=== PATIENT | female | born 1950 | race Caucasian/White ===

== ENCOUNTER 2020-10-19 16:16 | Inpatient (IN) | payer MEDICAID ==
[~2020-10-19] VITALS: Ht 162.6 cm; Wt 73.5 kg
[2020-10-19] MEDS ORDERED: METHYLPREDNISOLONE SOD SUCC 125 MG/2 ML VIAL IV STA (16:47)
[2020-10-19] MEDS ORDERED: CEFTRIAXONE 1 G PREMIX 50 ML IV ONE (17:00)
[2020-10-19] MEDS ORDERED: AZITHROMYCIN 500 MG in DEXT 5% WATER 250 ML IV SCH (17:00)
[2020-10-19 17:06] LABS: BG BASE EXCESS 0.3 mmol/L (-2.0-2.0); BG CARBOXYHEMOGLOBIN 0.4 % (0.5-1.5); BG METHEMOGLOBIN 0.1 % (0.0-1.5); BG OXYGEN SATURATION 89.9 % (92.0-98.5); BG OXYHEMOGLOBIN 89.5 % (94.0-97.0); BG PCO2 35.7 mmHg (35.0-45.0); BG PH 7.446 (7.350-7.450); BG SAMPLE SITE LEFT RADIAL; BG TOTAL HEMOGLOBIN 12.7 g/dL (12.0-18.0); BG VENT MODE MASK - NRB
[2020-10-19 18:06] LABS: BASOPHILS % 0.5 % (0.0-2.0); HEMATOCRIT. 34.7 % (36.0-48.0); HEMOGLOBIN. 11.9 g/dL (12.0-16.0); LYMPHOCYTES % 8.3 % (20.0-50.0); MEAN CORPUSCULAR HEMOGLOBIN 30.4 pg (28.0-32.0); MEAN CORPUSCULAR VOLUME 88.8 fL (81.0-99.0); MEAN PLATELET VOLUME 8.3 fl (7.4-10.4); MONOCYTES % 4.8 % (2.0-8.0); NEUTROPHILS % 86.4 % (40.0-76.0); PLATELET 259 x1000/uL (130-400); RED BLOOD CELL COUNT 3.91 mill/uL (4.2-5.4); RED CELL DISTRIBUTION WIDTH 14.3 % (11.6-14.6)
[2020-10-19 18:12] LABS: CHLORIDE 99 mEq/L (98-107)
[2020-10-19] MEDS ORDERED: ACETAMINOPHEN 325MG TABLET PO ONE (21:30)
[2020-10-19] MEDS ORDERED: ONDANSETRON HCL 4MG/2ML INJ IV PRN (22:00)
[2020-10-19] MEDS ORDERED: BENZONATATE 100MG CAPSULE PO PRN (22:00)
[2020-10-19] MEDS ORDERED: ACETAMINOPHEN 325MG TABLET PO PRN (22:00)
[2020-10-19] MEDS ORDERED: DEXTROSE 50% WATER 50ML SYRINGE IV PRN (22:15)
[2020-10-19] MEDS ORDERED: CEFTRIAXONE 1 G PREMIX 50 ML IV SCH (22:15)
[2020-10-20] MEDS: ALBUTEROL 6.7GM HFA INHALER ORI SCH ×6 (04:00→20:00)
[2020-10-20] MEDS: BLOOD SUGAR DIAGNOSTIC STRIP TEST SCH ×5 (06:10→20:24)
[2020-10-20] MEDS: INSULIN LISPRO 100 UNITS/ML SUBCUT SCH ×5 (06:14→20:29)
[2020-10-20] MEDS: DEXAMETHASONE 10 MG/ML VIAL IV SCH (08:55)
[2020-10-20] MEDS: ENOXAPARIN 40MG/0.4ML SYR SUBCUT SCH ×2 (08:56→20:29)
[2020-10-20 11:23] LABS: BG BASE EXCESS -3.9 mmol/L (-2.0-2.0); BG CARBOXYHEMOGLOBIN 0.4 % (0.5-1.5); BG DEOXYHEMOGLOBIN 8.3 % (0.0-5.0); BG FRACTION INSPIRED OXYGEN 100; BG HCO3 ACT 20.5 mmol/L (22.0-26.0); BG METHEMOGLOBIN 0.3 % (0.0-1.5); BG OXYGEN SATURATION 91.6 % (92.0-98.5); BG PCO2 34.9 mmHg (35.0-45.0); BG PH 7.386 (7.350-7.450); BG SAMPLE SITE LEFT RADIAL; BG TOTAL HEMOGLOBIN 12.5 g/dL (12.0-18.0); BG VENT MODE MASK - BIPAP
[2020-10-20] MEDS ORDERED: NOREPINEPHRINE 32 MG in DEXT 5% WATER 218 ML IV PRN (11:45)
[2020-10-20] MEDS ORDERED: LIDOCAINE HCL 1% 20ML VIAL (Pyxis) INJ ONE (13:27)
[2020-10-20] MEDS: CEFTRIAXONE 1,000 MG in DEXTROSE 5% WATER 50 ML IV SCH (14:34)
[2020-10-20 14:55] LABS: METHADONE URINE SCREEN NEGATIVE (NEGATIVE)
[2020-10-20 14:57] LABS: *AMPHETAMINES SCREEN URINE NEGATIVE (NEGATIVE); *BARBITURATES SCREEN URINE NEGATIVE (NEGATIVE); *BENZODIAZEPINES SCREEN URINE NEGATIVE (NEGATIVE); *COCAINE SCREEN URINE NEGATIVE (NEGATIVE); CANNABINOID URINE SCREEN NEGATIVE (NEGATIVE); OPIATES URINE SCREEN NEGATIVE (NEGATIVE); PHENCYCLIDINE URINE SCREEN NEGATIVE (NEGATIVE)
[2020-10-20] MEDS ORDERED: INSULIN GLARGINE UD 100 UNITS/ML SYR SUBCUT NR (15:30)
[2020-10-20] MEDS: INSULIN GLARGINE UD 100 UNITS/ML SYR SUBCUT SCH (22:00)
[2020-10-21] MEDS: ALBUTEROL 6.7GM HFA INHALER ORI SCH ×6 (00:15→19:50)
[2020-10-21 06:00] LABS: D-DIMER 2.74 mg/L FEU (<0.50); PROTHROMBIN TIME 10.4 sec (9.6-11.0)
[2020-10-21 06:02] LABS: BASOPHILS % 0.8 % (0.0-2.0); EOSINOPHILS % 0.1 % (0.0-5.0); HEMATOCRIT. 32.2 % (36.0-48.0); HEMOGLOBIN. 10.9 g/dL (12.0-16.0); LYMPHOCYTES % 7.7 % (20.0-50.0); MEAN CORPUSCULAR VOLUME 88.6 fL (81.0-99.0); MEAN PLATELET VOLUME 7.9 fl (7.4-10.4); NEUTROPHILS % 87.4 % (40.0-76.0); PLATELET 296 x1000/uL (130-400); RED BLOOD CELL COUNT 3.63 mill/uL (4.2-5.4); RED CELL DISTRIBUTION WIDTH 14.3 % (11.6-14.6)
[2020-10-21] MEDS: INSULIN LISPRO 100 UNITS/ML SUBCUT SCH ×4 (08:00→20:47)
[2020-10-21] MEDS: DEXAMETHASONE 10 MG/ML VIAL IV SCH (08:55)
[2020-10-21] MEDS: BLOOD SUGAR DIAGNOSTIC STRIP TEST SCH ×4 (08:55→20:47)
[2020-10-21 09:24] LABS: BG BASE EXCESS 4.1 mmol/L (-2.0-2.0); BG CARBOXYHEMOGLOBIN 0.3 % (0.5-1.5); BG DEOXYHEMOGLOBIN 3.2 % (0.0-5.0); BG FRACTION INSPIRED OXYGEN 100; BG HCO3 ACT 29.2 mmol/L (22.0-26.0); BG METHEMOGLOBIN 0.1 % (0.0-1.5); BG OXYGEN SATURATION 96.8 % (92.0-98.5); BG OXYHEMOGLOBIN 96.4 % (94.0-97.0); BG PCO2 46.3 mmHg (35.0-45.0); BG PH 7.418 (7.350-7.450); BG PO2 93.9 mmHg (75.0-100.0); BG SAMPLE SITE RIGHT BRACHIAL; BG TOTAL HEMOGLOBIN 11.2 g/dL (12.0-18.0); BG TOTAL RESPIRATORY RATE 26 b/min; BG VENT MODE MASK - BIPAP
[2020-10-21] MEDS: INSULIN GLARGINE UD 100 UNITS/ML SYR SUBCUT SCH ×2 (09:38→21:57)
[2020-10-21] MEDS: CEFTRIAXONE 1,000 MG in DEXTROSE 5% WATER 50 ML IV SCH (13:00)
[2020-10-21 15:23] LABS: T4 FREE 1.96 ng/dL (0.76-1.46)
[2020-10-21 15:27] LABS: CLARITY URINE CLEAR (CLEAR); COLOR URINE YELLOW (YELLOW); KETONES URINE TRACE (NEGATIVE); LEUKOCYTE ESTERASE URINE TRACE (NEGATIVE); NITRITE URINE NEGATIVE (NEGATIVE); OCCULT BLOOD URINE NEGATIVE (NEGATIVE); PH URINE 5.5 (4.5-8.0); PROTEIN URINE 1+ (NEGATIVE); SPECIFIC GRAVITY URINE 1.028 (1.005-1.030); UROBILINOGEN URINE 0.2 E.U./dL (0.2-1.0)
[2020-10-21] MEDS: ENOXAPARIN 40MG/0.4ML SYR SUBCUT SCH (20:47)
[2020-10-22] MEDS: ALBUTEROL 6.7GM HFA INHALER ORI SCH ×6 (00:05→21:50)
[2020-10-22] MEDS: BLOOD SUGAR DIAGNOSTIC STRIP TEST SCH ×4 (06:14→21:00)
[2020-10-22] MEDS: INSULIN LISPRO 100 UNITS/ML SUBCUT SCH ×4 (06:14→21:00)
[2020-10-22] MEDS: DEXAMETHASONE 10 MG/ML VIAL IV SCH (08:37)
[2020-10-22] MEDS: INSULIN GLARGINE UD 100 UNITS/ML SYR SUBCUT SCH ×2 (10:00→22:00)
[2020-10-22] MEDS: CEFTRIAXONE 1,000 MG in DEXTROSE 5% WATER 50 ML IV SCH (13:00)
[2020-10-22] MEDS: ENOXAPARIN 40MG/0.4ML SYR SUBCUT SCH (22:03)
[2020-10-23] MEDS: ALBUTEROL 6.7GM HFA INHALER ORI SCH ×5 (00:22→20:26)
[2020-10-23] MEDS: BLOOD SUGAR DIAGNOSTIC STRIP TEST SCH ×4 (06:47→21:00)
[2020-10-23] MEDS: INSULIN LISPRO 100 UNITS/ML SUBCUT SCH ×4 (07:00→21:00)
[2020-10-23] MEDS: INSULIN GLARGINE UD 100 UNITS/ML SYR SUBCUT SCH ×2 (09:52→22:01)
[2020-10-23] MEDS: DEXAMETHASONE 10 MG/ML VIAL IV SCH (09:52)
[2020-10-23] MEDS ORDERED: CEFTRIAXONE SODIUM 1 G/VIAL ONE (12:56)
[2020-10-23] MEDS: CEFTRIAXONE 1,000 MG in DEXTROSE 5% WATER 50 ML IV SCH (13:53)
[2020-10-23] MEDS: ENOXAPARIN 40MG/0.4ML SYR SUBCUT SCH (21:00)
[2020-10-24] VITALS (18 sets, daily range): BP systolic 101–144; BP diastolic 50–97
[2020-10-24] MEDS: ALBUTEROL 6.7GM HFA INHALER ORI SCH ×3 (04:38→15:21)
[2020-10-24] MEDS: BLOOD SUGAR DIAGNOSTIC STRIP TEST SCH ×4 (06:48→21:00)
[2020-10-24] MEDS: INSULIN LISPRO 100 UNITS/ML SUBCUT SCH ×4 (06:48→22:24)
[2020-10-24] MEDS: INSULIN GLARGINE UD 100 UNITS/ML SYR SUBCUT SCH ×2 (10:00→22:24)
[2020-10-24] MEDS: DEXAMETHASONE 10 MG/ML VIAL IV SCH (10:22)
[2020-10-24] MEDS: CEFTRIAXONE 1,000 MG in DEXTROSE 5% WATER 50 ML IV SCH (13:20)
[2020-10-24 13:37] LABS: BG BASE EXCESS 5.5 mmol/L (-2.0-2.0); BG CARBOXYHEMOGLOBIN 0.2 % (0.5-1.5); BG DEOXYHEMOGLOBIN 3.3 % (0.0-5.0); BG FRACTION INSPIRED OXYGEN 90; BG HCO3 ACT 29.1 mmol/L (22.0-26.0); BG METHEMOGLOBIN 0.3 % (0.0-1.5); BG OXYGEN SATURATION 96.7 % (92.0-98.5); BG OXYHEMOGLOBIN 96.2 % (94.0-97.0); BG PCO2 39.1 mmHg (35.0-45.0); BG PO2 87.7 mmHg (75.0-100.0); BG SAMPLE SITE RIGHT RADIAL; BG TOTAL HEMOGLOBIN 12.3 g/dL (12.0-18.0); BG TOTAL RESPIRATORY RATE 25 b/min; BG VENT MODE MASK - BIPAP
[2020-10-24] MEDS: ENOXAPARIN 80MG/0.8ML SYR SUBCUT SCH (16:53)
[2020-10-25] VITALS (30 sets, daily range): BP systolic 106–156; BP diastolic 53–97
[2020-10-25] MEDS: BLOOD SUGAR DIAGNOSTIC STRIP TEST SCH ×4 (06:49→20:57)
[2020-10-25] MEDS: INSULIN LISPRO 100 UNITS/ML SUBCUT SCH ×4 (06:49→21:55)
[2020-10-25] MEDS: ENOXAPARIN 80MG/0.8ML SYR SUBCUT SCH ×2 (07:06→17:16)
[2020-10-25] MEDS: ALBUTEROL 6.7GM HFA INHALER ORI SCH ×4 (07:37→20:36)
[2020-10-25] MEDS: INSULIN GLARGINE UD 100 UNITS/ML SYR SUBCUT SCH ×2 (10:05→21:56)
[2020-10-25] MEDS: DEXAMETHASONE 10 MG/ML VIAL IV SCH (10:05)
[2020-10-25 10:36] LABS: BG BASE EXCESS 2.5 mmol/L (-2.0-2.0); BG CARBOXYHEMOGLOBIN 0.3 % (0.5-1.5); BG DEOXYHEMOGLOBIN 6.7 % (0.0-5.0); BG FRACTION INSPIRED OXYGEN 80; BG HCO3 ACT 27.5 mmol/L (22.0-26.0); BG METHEMOGLOBIN 0.3 % (0.0-1.5); BG OXYGEN SATURATION 93.3 % (92.0-98.5); BG OXYHEMOGLOBIN 92.7 % (94.0-97.0); BG PCO2 44.1 mmHg (35.0-45.0); BG PH 7.413 (7.350-7.450); BG PO2 70.6 mmHg (75.0-100.0); BG SAMPLE SITE RIGHT RADIAL; BG TOTAL HEMOGLOBIN 11.3 g/dL (12.0-18.0); BG TOTAL RESPIRATORY RATE 28 b/min; BG VENT MODE MASK - BIPAP
[2020-10-25 13:51] LABS: BASOPHILS % 0.6 % (0.0-2.0); EOSINOPHILS % 0.7 % (0.0-5.0); HEMATOCRIT. 35.3 % (36.0-48.0); HEMOGLOBIN. 11.6 g/dL (12.0-16.0); LYMPHOCYTES % 7.5 % (20.0-50.0); MEAN CORPUSCULAR HEMOGLOBIN 29.3 pg (28.0-32.0); MEAN CORPUSCULAR VOLUME 89.5 fL (81.0-99.0); MEAN PLATELET VOLUME 8.3 fl (7.4-10.4); MONOCYTES % 1.9 % (2.0-8.0); NEUTROPHILS % 89.3 % (40.0-76.0); PLATELET 135 x1000/uL (130-400); RED BLOOD CELL COUNT 3.95 mill/uL (4.2-5.4); RED CELL DISTRIBUTION WIDTH 14.2 % (11.6-14.6)
[2020-10-25 14:07] LABS: CHLORIDE 102 mEq/L (98-107)
[2020-10-26] VITALS (66 sets, daily range): BP systolic 110–160; BP diastolic 60–87
[2020-10-26] MEDS: ALBUTEROL 6.7GM HFA INHALER ORI SCH ×5 (00:12→20:17)
[2020-10-26] MEDS: BLOOD SUGAR DIAGNOSTIC STRIP TEST SCH ×4 (05:36→21:00)
[2020-10-26] MEDS: ENOXAPARIN 80MG/0.8ML SYR SUBCUT SCH ×2 (05:36→17:04)
[2020-10-26] MEDS: INSULIN LISPRO 100 UNITS/ML SUBCUT SCH ×4 (07:00→21:00)
[2020-10-26] MEDS: DEXAMETHASONE 10 MG/ML VIAL IV SCH (09:50)
[2020-10-26] MEDS: INSULIN GLARGINE UD 100 UNITS/ML SYR SUBCUT SCH (10:21)
[2020-10-26] MEDS: AMLODIPINE 10MG TABLET PO SCH (12:08)
[2020-10-27] VITALS (46 sets, daily range): BP systolic 102–170; BP diastolic 46–83
[2020-10-27] MEDS: ALBUTEROL 6.7GM HFA INHALER ORI SCH ×6 (00:13→20:21)
[2020-10-27] MEDS: ENOXAPARIN 80MG/0.8ML SYR SUBCUT SCH ×2 (05:42→16:53)
[2020-10-27 05:58] LABS: BASOPHILS % 0.7 % (0.0-2.0); EOSINOPHILS % 0.2 % (0.0-5.0); HEMATOCRIT. 32.8 % (36.0-48.0); LYMPHOCYTES % 12.6 % (20.0-50.0); MEAN CORPUSCULAR HEMOGLOBIN 29.8 pg (28.0-32.0); MEAN CORPUSCULAR VOLUME 89.4 fL (81.0-99.0); MEAN PLATELET VOLUME 9.5 fl (7.4-10.4); MONOCYTES % 3.2 % (2.0-8.0); NEUTROPHILS % 83.3 % (40.0-76.0); PLATELET 138 x1000/uL (130-400); RED BLOOD CELL COUNT 3.67 mill/uL (4.2-5.4); RED CELL DISTRIBUTION WIDTH 13.9 % (11.6-14.6)
[2020-10-27 06:02] LABS: CHLORIDE 105 mEq/L (98-107)
[2020-10-27] MEDS: BLOOD SUGAR DIAGNOSTIC STRIP TEST SCH ×4 (06:30→21:32)
[2020-10-27] MEDS: INSULIN LISPRO 100 UNITS/ML SUBCUT SCH ×4 (07:00→22:08)
[2020-10-27] MEDS: DEXAMETHASONE 10 MG/ML VIAL IV SCH (09:48)
[2020-10-27] MEDS: AMLODIPINE 10MG TABLET PO SCH (09:48)
[2020-10-28] VITALS (25 sets, daily range): BP systolic 98–135; BP diastolic 64–84
[2020-10-28] MEDS: ALBUTEROL 6.7GM HFA INHALER ORI SCH ×5 (00:45→23:49)
[2020-10-28] MEDS: ENOXAPARIN 80MG/0.8ML SYR SUBCUT SCH ×2 (05:22→17:29)
[2020-10-28] MEDS: BLOOD SUGAR DIAGNOSTIC STRIP TEST SCH ×4 (06:18→21:00)
[2020-10-28] MEDS: INSULIN LISPRO 100 UNITS/ML SUBCUT SCH ×4 (06:19→23:45)
[2020-10-28 08:58] LABS: BG BASE EXCESS 2.4 mmol/L (-2.0-2.0); BG CARBOXYHEMOGLOBIN 0.3 % (0.5-1.5); BG DEOXYHEMOGLOBIN 5.9 % (0.0-5.0); BG HCO3 ACT 27.5 mmol/L (22.0-26.0); BG METHEMOGLOBIN 0.2 % (0.0-1.5); BG OXYGEN SATURATION 94.1 % (92.0-98.5); BG OXYHEMOGLOBIN 93.6 % (94.0-97.0); BG PCO2 44.5 mmHg (35.0-45.0); BG PH 7.409 (7.350-7.450); BG PO2 74.2 mmHg (75.0-100.0); BG SAMPLE SITE RIGHT RADIAL; BG VENT MODE MASK - BIPAP
[2020-10-28] MEDS: DEXAMETHASONE 10 MG/ML VIAL IV SCH (09:15)
[2020-10-28] MEDS: AMLODIPINE 10MG TABLET PO SCH (09:17)
[2020-10-28 13:18] LABS: CHLORIDE 102 mEq/L (98-107)
[2020-10-28 13:22] LABS: HEMATOCRIT 34.3 % (36.0-48.0); HEMOGLOBIN 11.1 g/dL (12.0-16.0); MEAN CORPUSCULAR HEMOGLOBIN 29.3 pg (28.0-32.0); MEAN CORPUSCULAR VOLUME 90.1 fL (81.0-99.0); PLATELET 157 x1000/uL (130-400)
[2020-10-28] MEDS ORDERED: LEVO125T8 MT (13:38)
[2020-10-28] MEDS ORDERED: ATOR40TA70 MT (13:38)
[2020-10-28] MEDS ORDERED: LOSA50TA41 MT (13:38)
[2020-10-28] MEDS ORDERED: SITA100T11 MT (13:38)
[2020-10-28] MEDS ORDERED: PIOG45TA62 MT (13:38)
[2020-10-28] MEDS ORDERED: HYDR25TA MT (13:38)
[2020-10-28] MEDS ORDERED: ASPI-1497 MT (14:29)
[2020-10-28] MEDS ORDERED: AMLO10TA80 MT (14:29)
[2020-10-28] MEDS ORDERED: DOCU-150 MT (14:29)
[2020-10-28] MEDS ORDERED: INSULIN GLARGINE UD 100 UNITS/ML SYR SUBCUT SCH (22:00)
[2020-10-29] VITALS: BP 141/69
[2020-10-29 04:00] VITALS: BP 108/69
[2020-10-29] MEDS: ALBUTEROL 6.7GM HFA INHALER ORI SCH ×5 (04:17→22:40)
[2020-10-29] MEDS: ENOXAPARIN 80MG/0.8ML SYR SUBCUT SCH ×2 (04:17→18:35)
[2020-10-29 07:18] LABS: BASOPHILS % 0.3 % (0.0-2.0); EOSINOPHILS % 1.2 % (0.0-5.0); HEMATOCRIT. 32.3 % (36.0-48.0); HEMOGLOBIN. 10.6 g/dL (12.0-16.0); LYMPHOCYTES % 13.6 % (20.0-50.0); MEAN CORPUSCULAR HEMOGLOBIN 29.3 pg (28.0-32.0); MEAN CORPUSCULAR VOLUME 89.1 fL (81.0-99.0); MEAN PLATELET VOLUME 8.8 fl (7.4-10.4); MONOCYTES % 3.1 % (2.0-8.0); NEUTROPHILS % 81.8 % (40.0-76.0); PLATELET 162 x1000/uL (130-400); RED BLOOD CELL COUNT 3.62 mill/uL (4.2-5.4); RED CELL DISTRIBUTION WIDTH 13.6 % (11.6-14.6)
[2020-10-29 08:00] VITALS: BP 123/62
[2020-10-29] MEDS: INSULIN LISPRO 100 UNITS/ML SUBCUT SCH ×4 (08:10→22:35)
[2020-10-29 08:29] LABS: CHLORIDE 104 mEq/L (98-107)
[2020-10-29] MEDS: BLOOD SUGAR DIAGNOSTIC STRIP TEST SCH ×4 (08:30→21:00)
[2020-10-29] MEDS: DEXAMETHASONE 10 MG/ML VIAL IV SCH (10:12)
[2020-10-29] MEDS: AMLODIPINE 10MG TABLET PO SCH (10:12)
[2020-10-29 12:00] VITALS: BP 128/58
[2020-10-29 16:00] VITALS: BP 126/68
[2020-10-29 20:00] VITALS: BP 130/76
[2020-10-30] VITALS: BP 143/68
[2020-10-30 04:00] VITALS: BP 135/66
[2020-10-30] MEDS: ALBUTEROL 6.7GM HFA INHALER ORI SCH ×6 (04:32→20:46)
[2020-10-30] MEDS: ENOXAPARIN 80MG/0.8ML SYR SUBCUT SCH ×2 (05:12→17:39)
[2020-10-30 07:37] LABS: BASOPHILS % 0.4 % (0.0-2.0); EOSINOPHILS % 0.2 % (0.0-5.0); HEMATOCRIT. 34.6 % (36.0-48.0); HEMOGLOBIN. 11.7 g/dL (12.0-16.0); LYMPHOCYTES % 13.3 % (20.0-50.0); MEAN CORPUSCULAR VOLUME 88.6 fL (81.0-99.0); MEAN PLATELET VOLUME 9.8 fl (7.4-10.4); MONOCYTES % 2.5 % (2.0-8.0); NEUTROPHILS % 83.6 % (40.0-76.0); PLATELET 167 x1000/uL (130-400); RED CELL DISTRIBUTION WIDTH 13.8 % (11.6-14.6)
[2020-10-30] MEDS: BLOOD SUGAR DIAGNOSTIC STRIP TEST SCH ×4 (07:40→20:46)
[2020-10-30 08:00] VITALS: BP 141/90
[2020-10-30] MEDS: INSULIN LISPRO 100 UNITS/ML SUBCUT SCH ×4 (08:10→22:27)
[2020-10-30 08:18] LABS: CHLORIDE 102 mEq/L (98-107)
[2020-10-30] MEDS ORDERED: INSULIN GLARGINE UD 100 UNITS/ML SYR SUBCUT SCH (10:00)
[2020-10-30] MEDS: DEXAMETHASONE 10 MG/ML VIAL IV SCH (10:32)
[2020-10-30] MEDS: AMLODIPINE 10MG TABLET PO SCH (10:32)
[2020-10-30 12:00] VITALS: BP 126/63
[2020-10-30] MEDS: INSULIN GLARGINE UD 100 UNITS/ML SYR SUBCUT SCH (13:25)
[2020-10-30 16:00] VITALS: BP 125/55
[2020-10-30] MEDS ORDERED: INSULIN LISPRO 100 UNITS/ML SUBCUT NR (17:10)
[2020-10-30 20:00] VITALS: BP 111/86
[2020-10-31] VITALS: BP 121/60
[2020-10-31] MEDS: ALBUTEROL 6.7GM HFA INHALER ORI SCH ×7 (02:10→23:52)
[2020-10-31 04:00] VITALS: BP 108/66
[2020-10-31] MEDS: ENOXAPARIN 80MG/0.8ML SYR SUBCUT SCH ×2 (05:58→17:45)
[2020-10-31] MEDS: BLOOD SUGAR DIAGNOSTIC STRIP TEST SCH ×4 (07:40→20:21)
[2020-10-31 08:00] VITALS: BP 125/86
[2020-10-31] MEDS: INSULIN LISPRO 100 UNITS/ML SUBCUT SCH ×4 (08:10→20:32)
[2020-10-31] MEDS: INSULIN GLARGINE UD 100 UNITS/ML SYR SUBCUT SCH (09:48)
[2020-10-31] MEDS: AMLODIPINE 10MG TABLET PO SCH (09:48)
[2020-10-31 11:29] LABS: BG BASE EXCESS 3.1 mmol/L (-2.0-2.0); BG DEOXYHEMOGLOBIN 7.6 % (0.0-5.0); BG FRACTION INSPIRED OXYGEN 99.9; BG HCO3 ACT 27.5 mmol/L (22.0-26.0); BG METHEMOGLOBIN 0.1 % (0.0-1.5); BG OXYGEN SATURATION 92.4 % (92.0-98.5); BG OXYHEMOGLOBIN 92.3 % (94.0-97.0); BG PCO2 41.2 mmHg (35.0-45.0); BG PH 7.442 (7.350-7.450); BG PO2 61.5 mmHg (75.0-100.0); BG SAMPLE SITE RIGHT RADIAL; BG TOTAL HEMOGLOBIN 11.9 g/dL (12.0-18.0); BG VENT MODE MASK - NRB
[2020-10-31 12:00] VITALS: BP 134/59
[2020-10-31 16:00] VITALS: BP 127/70
[2020-10-31 20:00] VITALS: BP 116/60
[2020-11-01] VITALS: BP 114/70
[2020-11-01 04:00] VITALS: BP 121/64
[2020-11-01] MEDS: ALBUTEROL 6.7GM HFA INHALER ORI SCH ×5 (04:38→20:20)
[2020-11-01] MEDS: ENOXAPARIN 80MG/0.8ML SYR SUBCUT SCH ×2 (04:40→17:29)
[2020-11-01] MEDS: BLOOD SUGAR DIAGNOSTIC STRIP TEST SCH ×4 (06:46→20:34)
[2020-11-01 08:00] VITALS: BP 118/53
[2020-11-01] MEDS: INSULIN LISPRO 100 UNITS/ML SUBCUT SCH ×4 (08:04→20:35)
[2020-11-01] MEDS: INSULIN GLARGINE UD 100 UNITS/ML SYR SUBCUT SCH (09:30)
[2020-11-01] MEDS: AMLODIPINE 10MG TABLET PO SCH (09:31)
[2020-11-01 12:00] VITALS: BP 118/65
[2020-11-01 16:00] VITALS: BP 108/63
[2020-11-01 20:00] VITALS: BP 114/57
[2020-11-02] VITALS: BP 98/60
[2020-11-02] MEDS: ALBUTEROL 6.7GM HFA INHALER ORI SCH ×5 (00:15→18:13)
[2020-11-02 04:00] VITALS: BP 122/91
[2020-11-02] MEDS: ENOXAPARIN 80MG/0.8ML SYR SUBCUT SCH ×2 (04:08→18:09)
[2020-11-02] MEDS: BLOOD SUGAR DIAGNOSTIC STRIP TEST SCH ×4 (06:53→21:00)
[2020-11-02 08:00] VITALS: BP 121/73
[2020-11-02] MEDS: INSULIN LISPRO 100 UNITS/ML SUBCUT SCH ×4 (08:10→22:24)
[2020-11-02] MEDS: AMLODIPINE 10MG TABLET PO SCH (09:38)
[2020-11-02] MEDS: INSULIN GLARGINE UD 100 UNITS/ML SYR SUBCUT SCH (10:14)
[2020-11-02 12:00] VITALS: BP 115/66
[2020-11-02 16:00] VITALS: BP 124/67
[2020-11-02 20:00] VITALS: BP 146/72
[2020-11-03] VITALS: BP 127/71
[2020-11-03 04:00] VITALS: BP 118/59
[2020-11-03] MEDS: ENOXAPARIN 80MG/0.8ML SYR SUBCUT SCH ×2 (05:54→17:13)
[2020-11-03] MEDS: INSULIN LISPRO 100 UNITS/ML SUBCUT SCH ×4 (07:41→22:40)
[2020-11-03] MEDS: BLOOD SUGAR DIAGNOSTIC STRIP TEST SCH ×4 (07:41→17:05)
[2020-11-03 08:00] VITALS: BP 136/72
[2020-11-03] MEDS: AMLODIPINE 10MG TABLET PO SCH (09:22)
[2020-11-03] MEDS: INSULIN GLARGINE UD 100 UNITS/ML SYR SUBCUT SCH (09:23)
[2020-11-03] MEDS: ALBUTEROL 6.7GM HFA INHALER ORI SCH ×4 (09:24→22:47)
[2020-11-03 12:00] VITALS: BP 111/61
[2020-11-03 16:00] VITALS: BP 121/66
[2020-11-03 20:00] VITALS: BP 144/84
[2020-11-04] VITALS: BP 118/69
[2020-11-04] MEDS: ALBUTEROL 6.7GM HFA INHALER ORI SCH ×7 (00:11→23:54)
[2020-11-04 04:00] VITALS: BP 132/63
[2020-11-04] MEDS: ENOXAPARIN 80MG/0.8ML SYR SUBCUT SCH ×2 (05:58→17:37)
[2020-11-04] MEDS: BLOOD SUGAR DIAGNOSTIC STRIP TEST SCH ×4 (07:04→20:57)
[2020-11-04 08:00] VITALS: BP 115/66
[2020-11-04] MEDS: AMLODIPINE 10MG TABLET PO SCH (09:45)
[2020-11-04] MEDS: INSULIN LISPRO 100 UNITS/ML SUBCUT SCH ×4 (09:46→20:58)
[2020-11-04] MEDS: INSULIN GLARGINE UD 100 UNITS/ML SYR SUBCUT SCH (09:47)
[2020-11-04 12:00] VITALS: BP 122/63
[2020-11-04 16:00] VITALS: BP 106/69
[2020-11-04 20:35] LABS: HEMOGLOBIN 11.7 g/dL (12.0-16.0); MEAN CORPUSCULAR HEMOGLOBIN 29.5 pg (28.0-32.0); MEAN CORPUSCULAR VOLUME 91.1 fL (81.0-99.0); PLATELET 199 x1000/uL (130-400); RED BLOOD CELL COUNT 3.95 mill/uL (4.2-5.4); RED CELL DISTRIBUTION WIDTH 14.8 % (11.6-14.6)
[2020-11-04 20:49] LABS: CHLORIDE 101 mEq/L (98-107)
[2020-11-04 20:52] VITALS: BP 121/78
[2020-11-05 00:14] VITALS: BP 129/65
[2020-11-05 04:00] VITALS: BP 114/74
[2020-11-05] MEDS: ENOXAPARIN 80MG/0.8ML SYR SUBCUT SCH ×2 (04:08→18:05)
[2020-11-05] MEDS: ALBUTEROL 6.7GM HFA INHALER ORI SCH ×4 (04:08→21:59)
[2020-11-05] MEDS: BLOOD SUGAR DIAGNOSTIC STRIP TEST SCH ×4 (05:39→21:59)
[2020-11-05 08:00] VITALS: BP 120/72
[2020-11-05] MEDS: INSULIN LISPRO 100 UNITS/ML SUBCUT SCH ×4 (11:09→21:00)
[2020-11-05] MEDS: INSULIN GLARGINE UD 100 UNITS/ML SYR SUBCUT SCH (11:09)
[2020-11-05] MEDS: AMLODIPINE 10MG TABLET PO SCH (11:10)
[2020-11-05 12:00] VITALS: BP 124/56
[2020-11-05 16:00] VITALS: BP 128/70
[2020-11-05 20:00] VITALS: BP 161/83
[2020-11-06] VITALS (8 sets, daily range): BP systolic 115–131; BP diastolic 53–84
[2020-11-06] MEDS: ALBUTEROL 6.7GM HFA INHALER ORI SCH ×6 (01:34→20:00)
[2020-11-06] MEDS: ENOXAPARIN 80MG/0.8ML SYR SUBCUT SCH ×2 (04:57→16:27)
[2020-11-06] MEDS: BLOOD SUGAR DIAGNOSTIC STRIP TEST SCH ×4 (05:47→21:39)
[2020-11-06] MEDS: INSULIN LISPRO 100 UNITS/ML SUBCUT SCH ×4 (05:47→22:18)
[2020-11-06] MEDS: AMLODIPINE 10MG TABLET PO SCH (09:36)
[2020-11-06] MEDS: INSULIN GLARGINE UD 100 UNITS/ML SYR SUBCUT SCH (09:37)
[2020-11-07] VITALS: BP 102/63
[2020-11-07 04:00] VITALS: BP 131/75
[2020-11-07] MEDS: ALBUTEROL 6.7GM HFA INHALER ORI SCH ×6 (04:00→20:00)
[2020-11-07 06:23] LABS: CHLORIDE 104 mEq/L (98-107)
[2020-11-07] MEDS: ENOXAPARIN 80MG/0.8ML SYR SUBCUT SCH ×2 (06:23→17:54)
[2020-11-07 06:29] LABS: BASOPHILS % 1.4 % (0.0-2.0); EOSINOPHILS % 4.3 % (0.0-5.0); HEMATOCRIT. 35.5 % (36.0-48.0); HEMOGLOBIN. 11.7 g/dL (12.0-16.0); LYMPHOCYTES % 22.5 % (20.0-50.0); MEAN CORPUSCULAR VOLUME 90.8 fL (81.0-99.0); MEAN PLATELET VOLUME 9.3 fl (7.4-10.4); NEUTROPHILS % 64.8 % (40.0-76.0); PLATELET 196 x1000/uL (130-400); RED BLOOD CELL COUNT 3.91 mill/uL (4.2-5.4); RED CELL DISTRIBUTION WIDTH 14.9 % (11.6-14.6)
[2020-11-07] MEDS: BLOOD SUGAR DIAGNOSTIC STRIP TEST SCH ×4 (06:57→21:42)
[2020-11-07 08:00] VITALS: BP 105/81
[2020-11-07] MEDS: INSULIN LISPRO 100 UNITS/ML SUBCUT SCH ×4 (08:10→21:49)
[2020-11-07] MEDS: AMLODIPINE 10MG TABLET PO SCH (10:05)
[2020-11-07] MEDS: INSULIN GLARGINE UD 100 UNITS/ML SYR SUBCUT SCH (10:06)
[2020-11-07 12:00] VITALS: BP 131/82
[2020-11-07 16:00] VITALS: BP 119/66
[2020-11-07 20:00] VITALS: BP 99/60
[2020-11-08] VITALS: BP 127/75
[2020-11-08 04:00] VITALS: BP 101/66
[2020-11-08] MEDS: ALBUTEROL 6.7GM HFA INHALER ORI SCH ×5 (04:00→17:27)
[2020-11-08] MEDS: BLOOD SUGAR DIAGNOSTIC STRIP TEST SCH ×4 (06:52→20:08)
[2020-11-08] MEDS: ENOXAPARIN 80MG/0.8ML SYR SUBCUT SCH ×2 (06:52→17:27)
[2020-11-08 08:00] VITALS: BP 121/75
[2020-11-08] MEDS: INSULIN LISPRO 100 UNITS/ML SUBCUT SCH ×4 (08:10→20:12)
[2020-11-08] MEDS: INSULIN GLARGINE UD 100 UNITS/ML SYR SUBCUT SCH (09:12)
[2020-11-08] MEDS: AMLODIPINE 10MG TABLET PO SCH (09:13)
[2020-11-08 12:00] VITALS: BP 116/72
[2020-11-08 16:00] VITALS: BP 134/70
[2020-11-08 20:00] VITALS: BP 120/58
[2020-11-09] VITALS: BP 121/72
[2020-11-09 04:00] VITALS: BP 148/85
[2020-11-09] MEDS: ENOXAPARIN 80MG/0.8ML SYR SUBCUT SCH ×2 (05:12→18:09)
[2020-11-09 08:00] VITALS: BP 129/72
[2020-11-09] MEDS: ALBUTEROL 6.7GM HFA INHALER ORI SCH ×3 (08:00→16:00)
[2020-11-09] MEDS: INSULIN LISPRO 100 UNITS/ML SUBCUT SCH ×4 (08:03→21:25)
[2020-11-09] MEDS: BLOOD SUGAR DIAGNOSTIC STRIP TEST SCH ×4 (08:03→21:25)
[2020-11-09] MEDS: AMLODIPINE 10MG TABLET PO SCH (10:26)
[2020-11-09 12:00] VITALS: BP 126/69
[2020-11-09] MEDS ORDERED: INSULIN GLARGINE UD 100 UNITS/ML SYR SUBCUT SCH (15:30)
[2020-11-09 16:00] VITALS: BP 129/72
[2020-11-09 20:00] VITALS: BP 109/67
[2020-11-10] VITALS: BP 121/61
[2020-11-10 04:00] VITALS: BP 114/66
[2020-11-10] MEDS: BLOOD SUGAR DIAGNOSTIC STRIP TEST SCH ×4 (06:30→21:08)
[2020-11-10] MEDS: ENOXAPARIN 80MG/0.8ML SYR SUBCUT SCH ×2 (06:31→19:11)
[2020-11-10] MEDS: ALBUTEROL 6.7GM HFA INHALER ORI SCH ×4 (07:35→21:20)
[2020-11-10] MEDS: INSULIN LISPRO 100 UNITS/ML SUBCUT SCH ×4 (07:35→21:19)
[2020-11-10 08:00] VITALS: BP 132/79
[2020-11-10] MEDS: AMLODIPINE 10MG TABLET PO SCH (09:00)
[2020-11-10 12:00] VITALS: BP 130/68
[2020-11-10 16:00] VITALS: BP 141/73
[2020-11-10 20:00] VITALS: BP 112/63
[2020-11-10] MEDS: INSULIN GLARGINE UD 100 UNITS/ML SYR SUBCUT SCH (21:18)
[2020-11-11] VITALS (7 sets, daily range): BP systolic 100–155; BP diastolic 63–86
[2020-11-11] MEDS: ALBUTEROL 6.7GM HFA INHALER ORI SCH ×6 (00:41→23:02)
[2020-11-11] MEDS: ENOXAPARIN 80MG/0.8ML SYR SUBCUT SCH ×2 (05:21→17:59)
[2020-11-11] MEDS: BLOOD SUGAR DIAGNOSTIC STRIP TEST SCH ×4 (06:26→21:00)
[2020-11-11] MEDS: AMLODIPINE 10MG TABLET PO SCH (09:17)
[2020-11-11] MEDS: INSULIN LISPRO 100 UNITS/ML SUBCUT SCH ×4 (09:18→23:04)
[2020-11-11] MEDS: INSULIN GLARGINE UD 100 UNITS/ML SYR SUBCUT SCH ×2 (12:04→23:05)
[2020-11-12] VITALS: BP 121/69
[2020-11-12 04:00] VITALS: BP 120/76
[2020-11-12] MEDS: ENOXAPARIN 80MG/0.8ML SYR SUBCUT SCH ×2 (04:40→17:00)
[2020-11-12] MEDS: ALBUTEROL 6.7GM HFA INHALER ORI SCH ×6 (04:42→23:59)
[2020-11-12] MEDS: BLOOD SUGAR DIAGNOSTIC STRIP TEST SCH ×4 (07:21→20:18)
[2020-11-12 08:00] VITALS: BP 120/77
[2020-11-12] MEDS: INSULIN LISPRO 100 UNITS/ML SUBCUT SCH ×4 (08:10→21:02)
[2020-11-12] MEDS: AMLODIPINE 10MG TABLET PO SCH (09:44)
[2020-11-12 12:00] VITALS: BP 123/73
[2020-11-12] MEDS: INSULIN GLARGINE UD 100 UNITS/ML SYR SUBCUT SCH ×2 (12:34→22:34)
[2020-11-12 16:00] VITALS: BP 122/88
[2020-11-12 16:13] LABS: BASOPHILS % 1.1 % (0.0-2.0); EOSINOPHILS % 6.1 % (0.0-5.0); HEMATOCRIT. 36.2 % (36.0-48.0); HEMOGLOBIN. 11.7 g/dL (12.0-16.0); MEAN PLATELET VOLUME 8.9 fl (7.4-10.4); MONOCYTES % 5.6 % (2.0-8.0); NEUTROPHILS % 61.2 % (40.0-76.0); PLATELET 173 x1000/uL (130-400); RED BLOOD CELL COUNT 3.89 mill/uL (4.2-5.4); RED CELL DISTRIBUTION WIDTH 16.1 % (11.6-14.6)
[2020-11-12 16:33] LABS: CHLORIDE 103 mEq/L (98-107)
[2020-11-12 20:00] VITALS: BP 128/63
[2020-11-13] VITALS: BP 135/75
[2020-11-13 04:00] VITALS: BP 130/69
[2020-11-13] MEDS: ALBUTEROL 6.7GM HFA INHALER ORI SCH ×5 (04:19→20:00)
[2020-11-13] MEDS: ENOXAPARIN 80MG/0.8ML SYR SUBCUT SCH ×2 (04:22→17:26)
[2020-11-13] MEDS: BLOOD SUGAR DIAGNOSTIC STRIP TEST SCH ×4 (06:48→21:49)
[2020-11-13 08:00] VITALS: BP 137/90
[2020-11-13] MEDS: AMLODIPINE 10MG TABLET PO SCH (10:56)
[2020-11-13] MEDS: INSULIN GLARGINE UD 100 UNITS/ML SYR SUBCUT SCH ×2 (10:58→22:28)
[2020-11-13] MEDS: INSULIN LISPRO 100 UNITS/ML SUBCUT SCH ×4 (10:58→21:00)
[2020-11-13 12:00] VITALS: BP 108/40
[2020-11-13 16:00] VITALS: BP 125/76
[2020-11-13 20:00] VITALS: BP 117/76
[2020-11-14] VITALS: BP 131/65
[2020-11-14] MEDS: ALBUTEROL 6.7GM HFA INHALER ORI SCH ×6 (00:16→21:02)
[2020-11-14 04:00] VITALS: BP 122/77
[2020-11-14] MEDS: ENOXAPARIN 80MG/0.8ML SYR SUBCUT SCH ×2 (06:05→19:08)
[2020-11-14] MEDS: BLOOD SUGAR DIAGNOSTIC STRIP TEST SCH ×4 (06:52→21:00)
[2020-11-14 08:00] VITALS: BP 140/63
[2020-11-14] MEDS: INSULIN LISPRO 100 UNITS/ML SUBCUT SCH ×4 (08:10→21:00)
[2020-11-14 12:00] VITALS: BP 76/61
[2020-11-14] MEDS: AMLODIPINE 10MG TABLET PO SCH (13:07)
[2020-11-14] MEDS: INSULIN GLARGINE UD 100 UNITS/ML SYR SUBCUT SCH ×2 (13:09→23:36)
[2020-11-14 16:00] VITALS: BP 136/86
[2020-11-14 21:52] VITALS: BP 123/79
[2020-11-15] VITALS: BP 125/53
[2020-11-15] MEDS: ALBUTEROL 6.7GM HFA INHALER ORI SCH ×7 (02:06→23:13)
[2020-11-15 04:00] VITALS: BP 156/97
[2020-11-15] MEDS: ENOXAPARIN 80MG/0.8ML SYR SUBCUT SCH ×2 (07:08→19:25)
[2020-11-15] MEDS: BLOOD SUGAR DIAGNOSTIC STRIP TEST SCH ×4 (07:53→21:30)
[2020-11-15] MEDS: INSULIN LISPRO 100 UNITS/ML SUBCUT SCH ×4 (08:10→21:00)
[2020-11-15] MEDS ORDERED: CLONIDINE 0.1MG TABLET PO PRN (09:30)
[2020-11-15] MEDS: AMLODIPINE 10MG TABLET PO SCH (10:06)
[2020-11-15] MEDS: INSULIN GLARGINE UD 100 UNITS/ML SYR SUBCUT SCH ×2 (10:11→22:57)
[2020-11-15 12:16] VITALS: BP 194/92
[2020-11-15] MEDS: DILTIAZEM HCL 90MG TABLET PO SCH ×2 (15:04→21:38)
[2020-11-15 16:00] VITALS: BP 105/62
[2020-11-15 20:00] VITALS: BP 106/59
[2020-11-16] VITALS: BP 98/51
[2020-11-16 04:00] VITALS: BP 106/61
[2020-11-16] MEDS: ALBUTEROL 6.7GM HFA INHALER ORI SCH ×5 (04:00→22:18)
[2020-11-16] MEDS: DILTIAZEM HCL 90MG TABLET PO SCH (06:00)
[2020-11-16] MEDS: ENOXAPARIN 80MG/0.8ML SYR SUBCUT SCH ×2 (06:05→17:11)
[2020-11-16] MEDS: BLOOD SUGAR DIAGNOSTIC STRIP TEST SCH ×4 (06:06→21:00)
[2020-11-16 08:00] VITALS: BP 108/41
[2020-11-16] MEDS: INSULIN LISPRO 100 UNITS/ML SUBCUT SCH ×4 (08:10→22:13)
[2020-11-16] MEDS: INSULIN GLARGINE UD 100 UNITS/ML SYR SUBCUT SCH ×2 (10:22→22:14)
[2020-11-16 10:50] LABS: BASOPHILS % 0.9 % (0.0-2.0); EOSINOPHILS % 8.9 % (0.0-5.0); HEMATOCRIT. 36.9 % (36.0-48.0); HEMOGLOBIN. 12.1 g/dL (12.0-16.0); MEAN CORPUSCULAR HEMOGLOBIN 30.2 pg (28.0-32.0); MEAN CORPUSCULAR VOLUME 92.7 fL (81.0-99.0); MEAN PLATELET VOLUME 8.5 fl (7.4-10.4); MONOCYTES % 8.4 % (2.0-8.0); NEUTROPHILS % 53.8 % (40.0-76.0); PLATELET 231 x1000/uL (130-400); RED BLOOD CELL COUNT 3.99 mill/uL (4.2-5.4); RED CELL DISTRIBUTION WIDTH 16.7 % (11.6-14.6)
[2020-11-16 11:00] LABS: CHLORIDE 103 mEq/L (98-107)
[2020-11-16 12:00] VITALS: BP 105/65
[2020-11-16] MEDS: DILTIAZEM HCL 60MG TABLET PO SCH ×2 (13:36→22:00)
[2020-11-16 16:00] VITALS: BP_SYST 87; BP_SYST 97; BP_DIAS 65
[2020-11-16 20:00] VITALS: BP 107/58
[2020-11-17] VITALS: BP 132/78
[2020-11-17] MEDS: ALBUTEROL 6.7GM HFA INHALER ORI SCH (00:25)
[2020-11-17 04:00] VITALS: BP 149/76
[2020-11-17] MEDS: DILTIAZEM HCL 60MG TABLET PO SCH ×3 (05:48→22:57)
[2020-11-17] MEDS: ENOXAPARIN 80MG/0.8ML SYR SUBCUT SCH (05:48)
[2020-11-17] MEDS ORDERED: DEXTROSE 50% WATER 50ML SYRINGE IV PRN (06:15)
[2020-11-17] MEDS: BLOOD SUGAR DIAGNOSTIC STRIP TEST SCH ×3 (06:48→21:00)
[2020-11-17 08:00] VITALS: BP 92/71
[2020-11-17] MEDS: INSULIN LISPRO 100 UNITS/ML SUBCUT SCH ×3 (08:10→23:03)
[2020-11-17] MEDS: INSULIN GLARGINE UD 100 UNITS/ML SYR SUBCUT SCH ×2 (10:48→23:04)
[2020-11-17 12:00] VITALS: BP 127/76
[2020-11-17 15:49] VITALS: BP 140/98
[2020-11-17 20:00] VITALS: BP 126/76
[2020-11-18] VITALS: BP 122/57
[2020-11-18 04:00] VITALS: BP 124/71
[2020-11-18] MEDS: DILTIAZEM HCL 60MG TABLET PO SCH ×3 (05:39→23:35)
[2020-11-18] MEDS: ENOXAPARIN 80MG/0.8ML SYR SUBCUT SCH ×2 (05:39→17:54)
[2020-11-18] MEDS: BLOOD SUGAR DIAGNOSTIC STRIP TEST SCH ×4 (06:53→21:00)
[2020-11-18] MEDS: INSULIN LISPRO 100 UNITS/ML SUBCUT SCH ×4 (07:31→21:00)
[2020-11-18 08:00] VITALS: BP 123/67
[2020-11-18] MEDS: INSULIN GLARGINE UD 100 UNITS/ML SYR SUBCUT SCH ×2 (10:47→23:37)
[2020-11-18 12:00] VITALS: BP 126/68
[2020-11-18] MEDS: HYDROCODONE/ACETAMINOPHEN 5/325MG TABLET PO PRN (14:27)
[2020-11-18 16:00] VITALS: BP 146/88
[2020-11-18 20:00] VITALS: BP 141/87
[2020-11-19] VITALS: BP 123/67
[2020-11-19 04:00] VITALS: BP 119/72
[2020-11-19] MEDS: DILTIAZEM HCL 60MG TABLET PO SCH ×3 (05:57→21:58)
[2020-11-19] MEDS: BLOOD SUGAR DIAGNOSTIC STRIP TEST SCH ×5 (07:26→22:27)
[2020-11-19] MEDS: INSULIN LISPRO 100 UNITS/ML SUBCUT SCH ×4 (07:26→21:00)
[2020-11-19 08:00] VITALS: BP 124/80
[2020-11-19] MEDS: ENOXAPARIN 80MG/0.8ML SYR SUBCUT SCH ×2 (10:29→21:58)
[2020-11-19] MEDS: INSULIN GLARGINE UD 100 UNITS/ML SYR SUBCUT SCH ×2 (10:30→21:59)
[2020-11-19 12:00] VITALS: BP 150/70
[2020-11-19 16:00] VITALS: BP 103/64
[2020-11-19 20:00] VITALS: BP 149/80
[2020-11-20] VITALS: BP 119/76
[2020-11-20 04:00] VITALS: BP 136/80
[2020-11-20] MEDS: BLOOD SUGAR DIAGNOSTIC STRIP TEST SCH ×4 (06:58→21:00)
[2020-11-20] MEDS: DILTIAZEM HCL 60MG TABLET PO SCH ×2 (06:58→13:15)
[2020-11-20 08:00] VITALS: BP 135/66
[2020-11-20] MEDS: INSULIN LISPRO 100 UNITS/ML SUBCUT SCH ×4 (08:10→21:00)
[2020-11-20] MEDS: ENOXAPARIN 80MG/0.8ML SYR SUBCUT SCH (10:14)
[2020-11-20] MEDS: INSULIN GLARGINE UD 100 UNITS/ML SYR SUBCUT SCH (10:15)
[2020-11-20 12:00] VITALS: BP 140/94
[2020-11-20] MEDS: BENZONATATE 100MG CAPSULE PO SCH (13:15)
[2020-11-20] MEDS: HYDROCODONE/ACETAMINOPHEN 5/325MG TABLET PO PRN (15:05)
[2020-11-20 16:00] VITALS: BP 142/59
[2020-11-20 20:00] VITALS: BP 114/64
[2020-11-21] VITALS: BP 144/70
[2020-11-21] MEDS: ENOXAPARIN 80MG/0.8ML SYR SUBCUT SCH ×2 (00:44→09:50)
[2020-11-21] MEDS: BENZONATATE 100MG CAPSULE PO SCH ×3 (00:46→13:05)
[2020-11-21] MEDS: DILTIAZEM HCL 60MG TABLET PO SCH ×3 (00:46→13:06)
[2020-11-21 04:00] VITALS: BP 113/81
[2020-11-21] MEDS: BLOOD SUGAR DIAGNOSTIC STRIP TEST SCH ×2 (07:16→12:20)
[2020-11-21] MEDS: INSULIN LISPRO 100 UNITS/ML SUBCUT SCH ×2 (07:28→12:20)
[2020-11-21 08:00] VITALS: BP 117/95
[2020-11-21 12:00] VITALS: BP 132/95
== END 2020-11-21 17:30 | disposition home or self-care (01) | DRG 720 ==
LOC: ER 16:27 → MICUSO 21:30 → EDBEDREQ 21:33 → EDBEDREQSVC 21:33 → EDBEDREQTM 21:33 → 5EST 10-23 08:50 → MICUSO 10-23 08:57 → 7WST 10-28 15:15
PROVIDERS: ADMIT Internal Medicine; ATTEND Internal Medicine
PROC: 02HV33Z Insertion of Infusion Device into Superior Vena Cava, Percutaneous Approach (ICD-10-PCS; principal; 2020-10-20)
PROC: 5A09557 Assistance with Respiratory Ventilation, Greater than 96 Consecutive Hours, Continuous Positive Airway Pressure (ICD-10-PCS; 2020-10-20)
PROC: B548ZZA Ultrasonography of Superior Vena Cava, Guidance (ICD-10-PCS; 2020-10-20)
PROC: XW13325 Transfusion of Convalescent Plasma (Nonautologous) into Peripheral Vein, Percutaneous Approach, New Technology Group 5 (ICD-10-PCS; 2020-10-21)
PROC: 5A09357 Assistance with Respiratory Ventilation, Less than 24 Consecutive Hours, Continuous Positive Airway Pressure (ICD-10-PCS; 2020-10-30)
DX: A41.89 Other specified sepsis (principal); U07.1 COVID-19; J96.01 Acute respiratory failure with hypoxia; D64.9 Anemia, unspecified; E78.5 Hyperlipidemia, unspecified; R00.1 Bradycardia, unspecified; E66.01 Morbid (severe) obesity due to excess calories; I10 Essential (primary) hypertension; R74.01 Elevation of levels of liver transaminase levels; R65.20 Severe sepsis without septic shock; D72.810 Lymphocytopenia; E11.649 Type 2 diabetes mellitus with hypoglycemia without coma; F17.200 Nicotine dependence, unspecified, uncomplicated; E05.90 Thyrotoxicosis, unspecified without thyrotoxic crisis or storm; I48.0 Paroxysmal atrial fibrillation; Z68.27 Body mass index [BMI] 27.0-27.9, adult; J12.82 Pneumonia due to coronavirus disease 2019
CPT/HCPCS: 36415; 36600; 71045; 76937; 80048; 80053; 80305; 81003; 82375; 82728; 82805; 82962; 83036; 83605; 83615; 83880; 84439; 84443; 84481; 84484; 85025; 85027; 85379; 86140; 86141; 86850; 86900; 86927; 87426; 87635; 93005; 93971; 94640; 94660; 96365; 99291; J0456; J0696; J1100; J1650; J1815; J2405; J2930; J3490; J7060; P9017